=== PATIENT | male | born 1975 | race Caucasian/White ===

== ENCOUNTER 2018-03-09 02:05 | Emergency (ER) | payer SELFPAY ==
[~2018-03-09] VITALS: Ht 203.2 cm; Wt 176.6 kg
[2018-03-09 03:35] VITALS: BP 144/82
== END 2018-03-09 04:35 | disposition left against medical advice (07) ==
LOC: ER 02:05
DX: Z53.21 Procedure and treatment not carried out due to patient leaving prior to being seen by health care provider (principal)

== ENCOUNTER 2018-09-22 23:48 | Emergency (ER) | payer SELFPAY ==
[~2018-09-22] VITALS: Ht 203.2 cm; Wt 175.0 kg
[2018-09-23 00:30] VITALS: BP 151/80
== END 2018-09-23 05:01 | disposition left against medical advice (07) ==
LOC: ER 23:48
DX: Z53.21 Procedure and treatment not carried out due to patient leaving prior to being seen by health care provider (principal)